=== PATIENT | female | born 1940 ===

== ENCOUNTER 2017-10-21 00:59 | Inpatient (IN) | payer MEDICARE ==
[2017-10-21] VITALS (19 sets, daily range): BP systolic 60–115; BP diastolic 41–75
[~2017-10-21] VITALS: Ht 170.2 cm; Wt 110.2 kg
[~2017-10-21 00:59] MED LIST: ACET500T68 PO; AMLO-96 PO; ASPI-1471 PO; ATOR10TA24 PO; CETI10CA8 PO; FLUO-177 PO; HYDR-2966 PO; LISI20TA29 PO
[2017-10-21] MEDS ORDERED: LIDOCAINE/SOD BICARB 8.4% SYR ID ONE (06:15)
[2017-10-21] MEDS ORDERED: FAMOTIDINE 20 MG TAB PO ONE (06:15)
[2017-10-21] MEDS ORDERED: ceFAZolin(*) 2GM/D5W 50ML 50 ML IVPB ONE (06:15)
[2017-10-21] MEDS ORDERED: PREGABALIN 75 MG CAPSULE PO ONE (06:15)
[2017-10-21] MEDS ORDERED: cloNIDine EPIDUR INJ 100MCG/ML 40 MCG, ROPIVACAINE 0.5% 20 ML VIAL 25 ML, EPINEPHrine H... INJ ONE (06:15)
[2017-10-21] MEDS ORDERED: TRANEXAMIC AC 1000 MG/10ML SDV 1,000 MG in DEXTROSE 5% 50 ML BAG 50 ML IV ONE (06:15)
[2017-10-21] MEDS ORDERED: MIDAZOLAM 2 MG/2 ML VIAL IVP PRN (06:15)
[2017-10-21] MEDS ORDERED: ACETAMINOPHEN 500 MG TAB PO ONE (06:15)
[2017-10-21] MEDS ORDERED: CELECOXIB 200 MG CAP PO ONE (06:15)
[2017-10-21] MEDS ORDERED: NORMOSOL R SOLN(*) 1000 ML BAG 1,000 ML IV PRN ×2 (06:15→09:45)
[2017-10-21] MEDS ORDERED: fentaNYL CITR 100 MCG/2 ML AMP ONE ×2 (06:54→08:36)
[2017-10-21] MEDS ORDERED: LIDOCAINE 2% IV 100 MG/5ML SYR ONE (06:55)
[2017-10-21] MEDS ORDERED: PROPOFOL EMUL(*) 10MG/ML 20 ML 20 ML ONE (06:56)
[2017-10-21] MEDS ORDERED: BUPIVACAINE 0.5% INJ 30ML VIAL ONE (07:30)
[2017-10-21] MEDS ORDERED: ePHEDrine 25 MG/5 ML DISP.SYR IVP ONE ×2 (07:37→07:49)
[2017-10-21] MEDS ORDERED: DEXAMETHASONE SOD PHOS 10MG/ML ONE (07:40)
[2017-10-21] MEDS ORDERED: ONDANSETRON 4 MG/2 ML VIAL ONE (07:41)
[2017-10-21] MEDS ORDERED: LIDOCAINE MPF 1% 5 ML VIAL ONE (08:26)
[2017-10-21] MEDS ORDERED: ONDANSETRON 4 MG/2 ML VIAL IVP PRN (09:45)
[2017-10-21] MEDS ORDERED: ZOLPIDEM TARTRATE 5 MG TAB PO PRN (09:45)
[2017-10-21] MEDS ORDERED: NALOXONE HCL 0.4 MG/ML VIAL IVP PRN (09:45)
[2017-10-21] MEDS ORDERED: BISACODYL 10 MG SUPP PR PRN (09:45)
[2017-10-21] MEDS ORDERED: MORPHINE SULFATE 30 MG PCA IV PRN (09:45)
[2017-10-21] MEDS ORDERED: PROMETHAZINE 25 MG/ML 1 ML AMP IVP PRN (09:45)
[2017-10-21] MEDS ORDERED: FLUSH 10 ML SYR IVP PRN (09:45)
--- NOTE | 2017-10-21 09:49 | RADIOLOGY IMAGING REPORT ---
FACILITY: [facility] PATIENT NAME: Angie Dan : 1940 MR: [id number] V: [id number] EXAM DATE: ORDERING PHYSICIAN: MICHELLE SHEEHAN TECHNOLOGIST: [place] [facility] [place] Patient: Angie Dan : 1940 Visit/Account:[id number] Date of Sevice: 10/21/2017 KNEE LIMITED RIGHT Indication: Right knee arthroplasty. Comparison: None. Findings: There are postoperative changes from right total knee arthroplasty. The femoral, patellar, and tibial components are in good alignment. There is no effusion. Impression: Postoperative changes right total knee arthroplasty. Report Dictated By: Rohan Boateng at 10/21/2017 9:44 AM Report E-Signed By: Rohan Boateng at 10/21/2017 9:45 AM WSN:[id number]
[2017-10-21] MEDS ORDERED: MORPHINE 2 MG/ML SYR IVP PRN (09:50)
[2017-10-21] MEDS: oxyCODONE HCL 5 MG CAP PO PRN ×2 (10:56→15:26)
[2017-10-21] MEDS ORDERED: HYDR-2966 PO (11:33)
--- NOTE | 2017-10-21 11:38 | CARSON TKA ---
EVENT DATE: October 21, 2017 SURGEON: Noe Lincoln MD ANESTHESIOLOGIST: Jose Alfredo Cox M.D. ANESTHESIA: Spinal followed by general. EVAPORATIVE COOLER INSTALLER: ED Humphrey PREOPERATIVE DIAGNOSIS Right knee degenerative joint disease. POSTOPERATIVE DIAGNOSIS Right knee degenerative joint disease. PROCEDURE PERFORMED Right total knee arthroplasty. IMPLANTS MicroPort medial pivot shift system with a 4 femur, 4 tibia, 12 mm insert, 8 x 35 symmetric patella, femur cut 6 degrees valgus, 10 mm. We also utilized two packages of DonJoy cobalt blue cement and ZipLine wound closure system. Anesthesia also gave 1 gram of IV tranexamic acid ten minutes prior to start and at the end of the implantation. We utilized 50 mL of our standard Toradol ropivacaine cocktail. SPECIMENS None. COMPLICATIONS None. BLOOD LOSS Less than 200 mL. OPERATION The patient received appropriate preoperative antibiotic, was brought to the OR , where Dr. Cox performed spinal followed by general anesthesia. Right thigh tourniquet was placed. Right lower extremity was prepped and draped in the usual sterile fashion. Midline incision was made followed by a medial parapatellar arthrotomy. I dissected subperiosteally along the medial tibial plateau to the level of the semimembranosus insertion. Fat pad was excised. Patella was released and everted. ACL and PCL were released subperiosteally by Bovie after the knee was brought up into flexion. The remaining articular cartilage was removed from the distal femoral condyles by sagittal saw. A step- cut drill was utilized to broach the distal femoral canal. Distal femoral alignment guide was then positioned. We pinned the block into place at 10 mm, 6 degree valgus, with care taken to protect the soft tissue. We made our distal cut. A 3-degree external rotation guide and sizing guide was then positioned, referencing off the posterior epicondyle, epicondyles and anterior flange. We sized this to a #4. Four-in-one cutting guide was positioned followed by a Z retractor to protect the soft tissues and we made our four cuts. Tibia was brought anteriorly on the femur with appropriate retractors. Step cut drill was utilized to broach the canal. Intramedullary tibial guide was then placed, referencing 10 mm off the least involved lateral tibial plateau , referencing for rotation. We pinned the block into place. Care was taken to protect the soft tissue with Z retractors. We made our tibial cut. The femur had been sized to #4. The tibia was sized to #4. Stump of the ACL and PCL, medial and lateral meniscus were then removed by Bovie. Posterior osteophytes were removed by curved osteotome and rongeur followed by elevation of the posterior capsule with the Roberson elevator. Tibial trial was then positioned, referencing from previous rotation. We pinned this into place. A 10 mm insert was then positioned followed by trial femur. We made excessive mobility to varus/valgus and anterior drawer so we replaced the 10 mm with 12 mm CS insert. We then achieved full extension. Flexion limited by body habitus to about 120 degrees. She is stable to varus/valgus stress and at 90 degrees anterior drawer was appropriate. The knee was brought out in full extension. Patella was sized to 22 mm. An 8 mm cutting guide was then positioned. We made our cut and this accepted at 35 x 8 mm peg hole trial, which was then placed anterior medially and peg hole was drilled. Trial patella was then placed. Knee was brought up into flexion and we drilled the peg holes for the femur, placed the pegs and cut for chip. No chip was then placed. Again, we had the aforementioned range of motion of stability and patella tracked well. Patella trial, femur and tibial insert were removed and appropriate retractors were placed to bring the tibia forward on the femur. We placed our tibial tower. The keel was then cut, reamed and punched. Instrumentation was removed and bone plug placed in the distal femur. The knee was brought out in full extension. We copiously irrigated by pulse lavage and mixed two packages of [place] blue DonJoy cement. We then injected 10 mL of our cocktail in the posterior capsule, placed in the appropriate position and irrigated once again. We then cemented the tibia followed by 12 mm CS insert and #4 femur. Excess cement was removed and knee brought out in full extension with axial compression while we cemented the patella. We waited for the cement to dry and injected the remaining portion of our cocktail in the quad mechanism, copiously irrigated by pulse lavage and at 13.5 minutes the cement had cured. Again, we had the aforementioned range of motion and stability. We copiously irrigated once again and closed the arthrotomy with #2 Vicryl in [id number] suture fashion followed by 2-0 Vicryl for the subcutaneous tissues and then at 45 degree angle and after cleaning the wounds, ZipLine wound closure system. The knee was placed in full extension. Compression dressing was applied. The patient was extubated and taken to recovery in stable condition. Hospitalist team to be consulted for medical management and anticoagulation, PT and OT for rehab. GERRI
[2017-10-21] MEDS: ACETAMINOPHEN 500 MG TAB PO SCH ×2 (13:42→21:38)
--- NOTE | 2017-10-21 13:55 | Hospitalist Progress Note ---
Subjective Progress Notes Subjective No cp. She reports exertional dyspnea for a couple of weeks. EBL 50cc. 1550cc of crystalloid, dexamethasone, ephedrine and TXA given intra-op. Physical Exam Vital Signs Date Time Temp Pulse Resp B/P (MAP) Pulse Ox O2 Delivery O2 Flow Rate FiO2 10/21/17 13:30 81 102/64 (77) 93 10/21/17 11:38 Nasal Cannula 0.5 10/21/17 10:51 18 10/21/17 10:51 97.6 Intake and Output 10/22/17 06:59 Intake Total 4200 ml Output Total 50 ml Balance 4150 ml Intake Oral 0 ml IV Total 2100 ml Other 2100 ml Output Estimated Blood Loss 50 ml General Appearance: Alert, Awake, No Acute Distress Cardiovascular: Regular Rate and Rhythm Respiratory: Clear to Auscultation Extremities: No Edema Assessment and Plan Problems: (1) Status post knee replacement Status: Acute Assessment & Plan: No CV issues. She has no h/o DVT/PE. She will be on ASA 325mg a day for 30 days after surgery for blood clot prevention. (2) HTN (hypertension) Status: Chronic Assessment & Plan: Continue chronic lisinopril, amlodipine and HCTZ with parameters. (3) Hyperlipemia Status: Chronic Assessment & Plan: Continue chronic atorvastatin. (4) T2DM (type 2 diabetes mellitus) Status: Chronic Assessment & Plan: Diet controlled. HgA1c was 6.6 pre-op. Will check glucose in the morning and might need AC HS glucose based on that. (5) History of pneumonectomy Status: Chronic Assessment & Plan: She has a remote h/o smoking and had a benign mass removed previously on left. She reports exertional dyspnea for a couple of weeks. Likely, she has some COPD. Will follow symptoms. Exam Sepsis Risk: No Definite Risk Problem Qualifiers (1) Status post knee replacement: Laterality: right Qualified Codes: Z96.651 - Presence of right artificial knee joint ERNESTO ZUNIGA MD Oct 21, 2017 13:54
[2017-10-21] MEDS: ceFAZolin(*) 2GM/D5W 50ML 50 ML IVPB SCH (16:26)
[2017-10-21] MEDS: LISINOPRIL 20 MG TAB PO SCH (21:00)
[2017-10-21] MEDS: HYDROCHLOROTHIAZIDE 25 MG TAB PO SCH (21:00)
[2017-10-21] MEDS: amLODIPine BESYL(*) 5 MG TAB PO SCH (21:00)
[2017-10-21] MEDS: FLUoxetine HCL 20 MG CAP PO SCH (21:38)
[2017-10-21] MEDS: ATORVASTATIN 10 MG TAB PO SCH (21:38)
[2017-10-22] MEDS: oxyCODONE HCL 5 MG CAP PO PRN ×6 (00:05→22:40)
[2017-10-22] MEDS: ceFAZolin(*) 2GM/D5W 50ML 50 ML IVPB SCH ×2 (00:23→08:37)
[2017-10-22 04:13] VITALS: BP 103/77
[2017-10-22] MEDS: ACETAMINOPHEN 500 MG TAB PO SCH ×3 (05:33→22:39)
[2017-10-22] MEDS: ASPIRIN 325 MG ENTERIC COATED PO SCH (08:37)
[2017-10-22] MEDS: LISINOPRIL 20 MG TAB PO SCH ×2 (09:00→20:31)
--- NOTE | 2017-10-22 09:41 | Hospitalist Progress Note ---
Subjective Progress Notes Subjective She has no complaints this morning. She had no acute events overnight. Patient Complains of: Cardiovascular: No: Chest Pain Respiratory: Shortness of Breath (exertional ) Physical Exam Vital Signs Date Time Temp Pulse Resp B/P (MAP) Pulse Ox O2 Delivery O2 Flow Rate FiO2 10/22/17 08:55 79 10/22/17 08:46 Nasal Cannula 1.0 10/22/17 04:13 98.0 82 16 103/77 (86) General Appearance: Alert, Awake, No Acute Distress, Afebrile Neuro: No Gross deficits Cardiovascular: Regular Rate and Rhythm Respiratory: No Respiratory Distress, Clear to Auscultation GI: Soft and Non-Tender Psych: Alert & Oriented X3, Appropriate Mood & Affect Result Diagram: 10/22/1752310/22/17523 Assessment and Plan Problems: (1) Status post knee replacement Status: Acute Assessment & Plan: No CV issues. She has no h/o DVT/PE. She will be on ASA 325mg a day for 30 days after surgery for blood clot prevention. (2) HTN (hypertension) Status: Chronic Assessment & Plan: Continue chronic lisinopril, amlodipine and HCTZ with parameters. (3) Hyperlipemia Status: Chronic Assessment & Plan: Continue chronic atorvastatin. (4) T2DM (type 2 diabetes mellitus) Status: Chronic Assessment & Plan: Diet controlled. HgA1c was 6.6 pre-op. Will check glucose in the morning and might need AC HS glucose based on that. (5) History of pneumonectomy Status: Chronic Assessment & Plan: She has a remote h/o smoking and had a benign mass removed previously on left. She reports exertional dyspnea for a couple of weeks. Likely, she has some COPD. Will follow symptoms. Exam Sepsis Risk: No Definite Risk Problem Qualifiers (1) Status post knee replacement: Laterality: right Qualified Codes: Z96.651 - Presence of right artificial knee joint LEOPOLDO DUBOSE [facility] Oct 22, 2017 09:41
[2017-10-22] MEDS ORDERED: INSULIN HUM LISPRO 100 UN/ML 3 ML VIAL SUBQ PRN (09:45)
[2017-10-22 10:25] VITALS: BP 92/51
[2017-10-22 14:09] VITALS: Ht 170.2 cm; Wt 110.2 kg
[2017-10-22 15:36] VITALS: BP 128/68
[2017-10-22 19:49] VITALS: BP 104/61
[2017-10-22] MEDS: ATORVASTATIN 10 MG TAB PO SCH (20:30)
[2017-10-22] MEDS: KETOROLAC TROM 10MG TAB PO PRN (20:30)
[2017-10-22] MEDS: FLUoxetine HCL 20 MG CAP PO SCH (20:31)
[2017-10-22] MEDS: amLODIPine BESYL(*) 5 MG TAB PO SCH (20:31)
[2017-10-22] MEDS: HYDROCHLOROTHIAZIDE 25 MG TAB PO SCH (20:31)
[2017-10-22 22:40] VITALS: BP 107/62
[2017-10-23] MEDS: oxyCODONE HCL 5 MG CAP PO PRN ×5 (03:04→22:15)
[2017-10-23 03:05] VITALS: BP 103/58
[2017-10-23] MEDS: ACETAMINOPHEN 500 MG TAB PO SCH ×3 (06:25→21:01)
[2017-10-23 07:48] VITALS: BP 100/61
--- NOTE | 2017-10-23 08:27 | Hospitalist Progress Note ---
Subjective Progress Notes Subjective She reports doing well. No CP/SOB/dizziness. Physical Exam Vital Signs Date Time Temp Pulse Resp B/P (MAP) Pulse Ox O2 Delivery O2 Flow Rate FiO2 10/23/17 07:51 92 Nasal Cannula 1.0 10/23/17 07:48 98.2 78 20 100/61 (74) General Appearance: Alert, Awake Result Diagram: 10/22/17 0524 10/23/17 0521 Assessment and Plan Problems: (1) Status post knee replacement Status: Acute Assessment & Plan: No current issues. She is on ASA 325mg a day for 30 days after surgery for blood clot prevention. (2) HTN (hypertension) Status: Chronic Assessment & Plan: BPs have been low normal range on no medications. Continue to monitor. Holding her usual lisinopril, amlodipine and HCTZ. (3) Hyperlipemia Status: Chronic Assessment & Plan: Continue chronic atorvastatin. (4) T2DM (type 2 diabetes mellitus) Status: Chronic Assessment & Plan: Diet controlled. HgA1c was 6.6 pre-op. Her fasting glucose this AM was 95. (5) S/P lobectomy of lung Status: Chronic Assessment & Plan: She has a remote h/o smoking and had a benign mass removed previously on left. She could have some COPD as well. She has required low flow O2 (1-2L). Watch closely. Exam Sepsis Risk: No Definite Risk Problem Qualifiers (1) Status post knee replacement: Laterality: right Qualified Codes: Z96.651 - Presence of right artificial knee joint RUFINO LUNA MD Oct 23, 2017 08:27
[2017-10-23] MEDS: ASPIRIN 325 MG ENTERIC COATED PO SCH (08:55)
[2017-10-23] MEDS: LISINOPRIL 20 MG TAB PO SCH ×2 (09:00→20:44)
[2017-10-23] MEDS: MAGNESIUM HYDROXIDE* 30ML UDCP PO PRN (10:12)
[2017-10-23 10:54] VITALS: BP 103/60
[2017-10-23 15:18] VITALS: BP 87/59
[2017-10-23 19:27] VITALS: BP 90/54
[2017-10-23] MEDS: HYDROCHLOROTHIAZIDE 25 MG TAB PO SCH (20:44)
[2017-10-23] MEDS: amLODIPine BESYL(*) 5 MG TAB PO SCH (20:44)
[2017-10-23] MEDS: ATORVASTATIN 10 MG TAB PO SCH (21:00)
[2017-10-23] MEDS: FLUoxetine HCL 20 MG CAP PO SCH (21:00)
[2017-10-23] MEDS: KETOROLAC TROM 10MG TAB PO PRN (21:00)
[2017-10-23 23:44] VITALS: BP 95/47
[2017-10-24] MEDS: oxyCODONE HCL 5 MG CAP PO PRN ×3 (02:45→12:43)
[2017-10-24 02:46] VITALS: BP 101/66
[2017-10-24] MEDS: ACETAMINOPHEN 500 MG TAB PO SCH ×2 (05:33→14:00)
[2017-10-24] MEDS ORDERED: OXYC-869 PO ×2 (07:26→09:33)
[2017-10-24 07:54] VITALS: BP 107/59
[2017-10-24] MEDS: LISINOPRIL 20 MG TAB PO SCH (08:08)
[2017-10-24] MEDS: ASPIRIN 325 MG ENTERIC COATED PO SCH (08:35)
[2017-10-24] MEDS ORDERED: ASPI-764 PO (08:35)
[2017-10-24] MEDS: MAGNESIUM HYDROXIDE* 30ML UDCP PO PRN (08:36)
[2017-10-24] MEDS ORDERED: POLY17PO25 PO (08:41)
[2017-10-24] MEDS ORDERED: MOM PO (08:41)
--- NOTE | 2017-10-24 08:42 | Hospitalist Progress Note ---
Subjective Progress Notes Subjective No cp/sob. She is still getting a bit light headed with standing. Staff reports that she is requiring 4 liters of O2 through the CPAP to maintain saturations. Physical Exam Vital Signs Date Time Temp Pulse Resp B/P (MAP) Pulse Ox O2 Delivery O2 Flow Rate FiO2 10/24/17 07:54 97.8 75 20 107/59 (75) 91 Room Air 10/24/17 02:46 4.0 Intake and Output 10/25/17 06:59 # Voids 1 General Appearance: Alert, Awake, No Acute Distress Result Diagram: 10/22/17 0524 10/23/17 05 Assessment and Plan Problems: (1) Status post knee replacement Status: Acute Assessment & Plan: No current issues. She is on ASA 325mg a day for 30 days after surgery for blood clot prevention. (2) HTN (hypertension) Status: Chronic Assessment & Plan: BPs have been low normal range on no medications. She is reporting some light headedness with standing, but she is able to ambulate and work with therapy. She is to continue holding her usual lisinopril, amlodipine and HCTZ, and follow up with her PCP in 1-2 weeks. (3) KARMEN on CPAP Status: Chronic Assessment & Plan: She is requiring 4 liters of O2 through the CPAP to maintain her saturations. This will be set up for her at home through her O2 company. Certainly, narcotic are exacerbating this. She is to discuss with her PCP in 1-2 weeks, who can then set up nocturnal oximetry testing to see if O2 is still needed. (4) Hyperlipemia Status: Chronic Assessment & Plan: Continue chronic atorvastatin. (5) T2DM (type 2 diabetes mellitus) Status: Chronic Assessment & Plan: Diet controlled. HgA1c was 6.6 pre-op. Glucose ranging from 112-134 in the last 24 hours. (6) S/P lobectomy of lung Status: Chronic Assessment & Plan: She has a remote h/o smoking and had a benign mass removed previously on left. She could have some COPD as well. Copies to: GEOFFREY MONTES DE OCA MD Exam Sepsis Risk: No Definite Risk Problem Qualifiers (1) Status post knee replacement: Laterality: right Qualified Codes: Z96.651 - Presence of right artificial knee joint ERNESTO ZUNIGA MD Oct 24, 2017 08:42
[2017-10-24 11:19] VITALS: BP 106/56
--- NOTE | 2017-10-24 19:18 | DISCHARGE SUMMARY ---
HISTORY OF PRESENT ILLNESS A 77-year-old female admitted to Day Surgery, underwent right total knee arthroplasty. She was admitted to the floor and the hospitalist team was consulted for medical management, anticoagulation, PT for rehab. She progressed in a slow, but steady manner. On the day of discharge the wounds are clean, dry and intact. The right lower extremity is neurovascularly intact. The hospitalist team will be clearing her prior to discharge and will transfer medical management and anticoagulation. She will see PT to be cleared prior to discharge also. She will have outpatient physical therapy, home CPM. She was given Percocet 7.5/325 number 40 for pain. We are going to see her next week in our [place] clinic. PRINCIPAL DIAGNOSIS Right knee degenerative joint disease. PRINCIPAL PROCEDURE Right total knee arthroplasty. GERRI
== END 2017-10-24 13:59 | disposition home or self-care (01) | DRG 470 ==
LOC: OR 00:59 → MED 10:58 → OBSVTOIN 10-22 14:50
PROVIDERS: ADMIT Orthopaedic Surgery; ATTEND Orthopaedic Surgery
PROC: 0SRC0J9 Replacement of Right Knee Joint with Synthetic Substitute, Cemented, Open Approach (ICD-10-PCS; principal; 2017-10-22)
DX: M17.11 Unilateral primary osteoarthritis, right knee (principal); I10 Essential (primary) hypertension; G47.33 Obstructive sleep apnea (adult) (pediatric); T40.605A Adverse effect of unspecified narcotics, initial encounter; E66.01 Morbid (severe) obesity due to excess calories; E78.5 Hyperlipidemia, unspecified; J44.9 Chronic obstructive pulmonary disease, unspecified; Y92.230 Patient room in hospital as the place of occurrence of the external cause; Z99.81 Dependence on supplemental oxygen; Z90.710 Acquired absence of both cervix and uterus; Z87.891 Personal history of nicotine dependence; Z90.2 Acquired absence of lung [part of]; Z68.38 Body mass index [BMI] 38.0-38.9, adult
CPT/HCPCS: 36415; 36416; 82310; 82374; 82435; 82565; 82947; 82948; 84132; 84295; 84520; 85014; 85018; 85610; 86850; 86900; 86901; 97161; C1713; C1776; G0378; J0171; J0690; J0735; J1100; J1885; J2001; J2250; J2405; J2704; J2795; J3010; J3490; J7050; J7060